=== PATIENT | female | born 1990 | race Caucasian/White ===

== ENCOUNTER 2018-04-26 14:34 | Emergency (ER) | payer BC ==
--- NOTE | 2018-04-26 15:35 | EDM.PDOC ---
ED HPI GENERAL MEDICAL PROBLEM - General Chief Complaint: General Stated Complaint: FEVER, COUGH ILL Time Seen by Provider: 04/26/18 15:16 Source of Information: Reports: Patient History Limitations: Reports: No Limitations - History of Present Illness INITIAL COMMENTS - FREE TEXT/NARRATIVE: Patient is a 27-year-old female who presents to the emergency department this afternoon with a complaint of upper respiratory symptoms that started yesterday. Patient states that she has fever, cough, nasal congestion and overall body aches. Patient denies shortness of breath, chest pain, headache, nausea, vomiting, diarrhea, or out of country travel. 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 - Related Data Allergies Allergy/AdvReac Type Severity Reaction Status Date / Time gluten Allergy Other Verified 04/26/18 14:41 Home Meds: Home Meds Escitalopram [Lexapro] 20 mg PO DAILY 04/26/18 [History] Minocycline [Minocin] 100 mg PO DAILY 04/26/18 [History] Oseltamivir [Tamiflu] 75 mg PO BID #6 cap 04/26/18 [Rx] Past Medical History Gastrointestinal History: Reports: Celiac Disease - Past Surgical History GI Surgical History: Reports: Other (See Below) Other GI Surgeries/Procedures: j-pouch reversal about 5 years ago Social & Family History - Family History Family Medical History: Noncontributory - Tobacco Use Smoking Status *Q: Never Smoker - Recreational Drug Use Recreational Drug Use: No ED ROS GENERAL - Review of Systems Review Of Systems: ROS reveals no pertinent complaints other than HPI. Constitutional: Reports: Fever, Chills HEENT: Reports: No Symptoms Respiratory: Reports: Cough Cardiovascular: Reports: No Symptoms Endocrine: Reports: No Symptoms GI/Abdominal: Reports: No Symptoms : Reports: No Symptoms Musculoskeletal: Reports: No Symptoms Skin: Reports: No Symptoms Neurological: Reports: No Symptoms Psychiatric: Reports: No Symptoms Hematologic/Lymphatic: Reports: No Symptoms Immunologic: Reports: No Symptoms ED EXAM, GENERAL - Physical Exam Exam: See Below Exam Limited By: No Limitations General Appearance: Alert, WD/WN, No Apparent Distress Eye Exam: Bilateral Eye: Normal Inspection Nose: Clear Rhinorrhea Throat/Mouth: Normal Inspection, Normal Oropharynx, No Airway Compromise Head: Atraumatic, Normocephalic Neck: Normal Inspection Respiratory/Chest: No Respiratory Distress, Lungs Clear, Normal Breath Sounds, No Accessory Muscle Use Cardiovascular: Regular Rate, Rhythm, No Murmur GI/Abdominal: Normal Bowel Sounds, Soft, Non-Tender Extremities: Normal Inspection, No Pedal Edema Neurological: Alert, Oriented, Normal Cognition Psychiatric: Normal Affect, Normal Mood Skin Exam: Warm, Dry, Intact, Normal Color, No Rash Lymphatic: No Adenopathy Course - Vital Signs Last Recorded V/S: Last Vital Signs Temp 98.4 F 04/26/18 14:52 Pulse 92 04/26/18 14:52 Resp 20 04/26/18 14:52 BP 108/69 04/26/18 14:52 Pulse Ox 98 04/26/18 14:52 - Re-Assessments/Exams Free Text/Narrative Re-Assessment/Exam: 04/26/18 16:03 Patient afebrile, vital signs stable, influenza A+. Patient given Tamiflu here and prescription to go. Departure - Departure Time of Disposition: 16:06 Disposition: Home, Self-Care 01 Condition: Good Clinical Impression: Influenza A - Discharge Information Instructions: Influenza, Adult, [id number], Viral Respiratory Infection, Easy -To-Read, Cough, Adult, [id number], Preventing Influenza, Adult Referrals: Bianka Ambrocio MD [Primary Care Provider] - Forms: ED Department Discharge Additional Instructions: Follow-up at [facility] in 2-3 days. Return to emergency sooner if symptoms continue or worsen.
[2018-04-26] MEDS ORDERED: Oseltamivir 75 MG Cap PO ONE ×2 (16:04→16:05)
== END 2018-04-26 16:30 | disposition home or self-care (01) ==
LOC: KA.ED 14:34
DX: J10.1 Influenza due to other identified influenza virus with other respiratory manifestations (principal); Z79.899 Other long term (current) drug therapy; Z91.018 Allergy to other foods
CPT/HCPCS: 87804; 99283; A9270-GY

== ENCOUNTER 2020-11-09 19:35 | Emergency (ER) | payer BC ==
[2020-11-09] MEDS ORDERED: Sodium Chloride 0.9% 10 ML Syringe FLUSH PRN (19:52)
--- NOTE | 2020-11-09 20:29 | EDM.PDOC ---
ED HPI GENERAL MEDICAL PROBLEM - General Stated Complaint: FEVER, POST DISCHARGE Time Seen by Provider: 11/09/20 20:18 Source of Information: Reports: Patient History Limitations: Reports: No Limitations - History of Present Illness INITIAL COMMENTS - FREE TEXT/NARRATIVE: Patient presents with fever that started today along with foul-smelling vaginal discharge for 2-3 days. She is one week s/p vaginal delivery of her first baby. There was some vaginal tearing and she has stitches. She hasn't looked to see if there is increasing redness. Pain is not increasing but not really improving either. Temp at home was 100.5. She is breast-feeding. Baby is doing well. She called her OB doctor and was instructed to come to ER. - Related Data Allergies Allergy/AdvReac Type Severity Reaction Status Date / Time gluten Allergy Other Verified 11/09/20 20:20 Home Meds: Home Meds Escitalopram [Lexapro] 20 mg PO DAILY 04/26/18 [History] Minocycline [Minocin] 100 mg PO DAILY 04/26/18 [History] Oseltamivir [Tamiflu] 75 mg PO BID #6 cap 04/26/18 [Rx] Past Medical History Gastrointestinal History: Reports: Celiac Disease - Past Surgical History GI Surgical History: Reports: Other (See Below) Other GI Surgeries/Procedures: j-pouch reversal about 5 years ago Social & Family History - Family History Family Medical History: No Pertinent Family History ED ROS GENERAL - Review of Systems Review Of Systems: See Below Constitutional: Reports: Fever. Denies: Chills, Malaise, Weakness, Diaphoresis, Decreased Appetite HEENT: Reports: No Symptoms Respiratory: Denies: Shortness of Breath, Cough Cardiovascular: Denies: Chest Pain, Lightheadedness, Syncope GI/Abdominal: Denies: Abdominal Pain, Vomiting : Denies: Dysuria Musculoskeletal: Reports: No Symptoms Skin: Denies: Cyanosis, Jaundice, Mottled, Pallor, Diaphoresis Neurological: Denies: Confusion, Dizziness, Headache, Seizure, Syncope, Trouble Speaking, Difficulty Walking Psychiatric: Denies: Agitation, Anxiety, Confusion ED EXAM, RENAL/ - Physical Exam Exam: See Below Exam Limited By: No Limitations General Appearance: Alert, WD/WN, No Apparent Distress Eye Exam: Bilateral Eye: EOMI, Normal Inspection, PERRL Ears: Normal External Exam, Hearing Grossly Normal Nose: Normal Inspection, No Blood Throat/Mouth: Normal Inspection, Normal Lips, Normal Voice, No Airway Compromise Head: Atraumatic, Normocephalic Neck: Normal Inspection, Full Range of Motion Respiratory/Chest: No Respiratory Distress, Lungs Clear, Normal Breath Sounds, No Accessory Muscle Use Cardiovascular: Regular Rate, Rhythm, No Murmur GI/Abdominal: Normal Bowel Sounds, Soft, No Organomegaly, No Distention, Tender (mildly, non-focal) (Female) Exam: Vaginal Discharge (small amount of pus which was collected for culture), Vaginal Tears (suture noted on left internal labia). No: Vaginal Bleeding Back Exam: CVA Tenderness (R). No: CVA Tenderness (L) Extremities: Normal Inspection, Normal Range of Motion Neurological: Alert, Oriented, Normal Cognition, No Motor/Sensory Deficits Psychiatric: Normal Affect, Normal Mood Skin Exam: Warm, Dry, Intact, No Rash, Erythema (of right inferomedial and lat eral right breast consistent with mastitis.) Course - Vital Signs Last Recorded V/S: Last Vital Signs Temp 100.6 F 11/09/20 19:50 Pulse 94 11/09/20 19:50 Resp 20 11/09/20 19:50 BP 135/84 11/09/20 19:50 Pulse Ox 97 11/09/20 19:50 - Orders/Labs/Meds Orders: Active Orders 24 hr Category Date Time Status Peripheral IV Care [RC] . DIRECTED Care 11/09/20 19:52 Active CULTURE BODY FLUID [RM] Stat Lab 11/09/20 20:54 Ordered CULTURE URINE [RM] Stat Lab 11/09/20 21:12 Ordered Sodium Chloride 0.9% [Saline Flush] Med 11/09/20 19:52 Active 10 ml FLUSH Q8HR PRN Peripheral IV Insertion Adult [OM.PC] Routine Oth 11/09/20 19:52 Ordered Medication Orders Sodium Chloride (Sodium Chloride 0.9% 10 Ml Syringe) 10 ml FLUSH Q8HR PRN PRN Reason: keep vein open Labs: Laboratory Tests 11/09/20 11/09/20 11/09/20 Range/Units 19:50 20:00 20:00 WBC 15.21 H (5.00-10.00) 10^3/uL RBC 4.56 (3.80-5.50) 10^6/uL Hgb 14.4 (12.0-16.0) g/dL Hct 42.4 (37.0-47.0) % MCV 93.0 H (82.0-92.0) fL MCH 31.6 H (27.0-31.0) pg MCHC 34.0 (32.0-36.0) g/dL RDW 14.4 (11.5-14.5) % Plt Count 411 H (150-400) 10^3/uL MPV 9.8 (7.4-10.4) fL Immature Gran % (Auto) 0.3 (0.0-5.0) % Neut % (Auto) 84.9 H (50.0-70.0) % Lymph % (Auto) 9.0 L (20.0-40.0) % [place] % (Auto) 4.9 (2.0-8.0) % Eos % (Auto) 0.8 L (1.0-3.0) % Baso % (Auto) 0.1 (0.0-1.0) % Neut # (Auto) 12.91 H (2.50-7.00) 10^3/uL Lymph # (Auto) 1.37 (1.00-4.00) 10^3/uL [place] # (Auto) 0.75 (0.10-0.80) 10^3/uL Eos # (Auto) 0.12 (0.10-0.30) 10^3/uL Baso # (Auto) 0.02 (0.00-0.10) 10^3/uL Immature Gran # (Auto) 0.04 (0.00-0.50) 10^3/uL Sodium 139 (136-145) mmol/L Potassium 3.4 L (3.5-5.1) mmol/L Chloride 102 (98-107) mmol/L Carbon Dioxide 28.3 (21.0-32.0) mmol/L Anion Gap 12.1 (5-15) mmol/L BUN 12 (7-18) mg/dL Creatinine 0.74 (0.51-1.17) mg/dL Est Cr Clr Drug Dosing 89.52 mL/min Estimated GFR (MDRD) > 60 mL/min Glucose 105 (70-140) mg/dL Lactic Acid (0.4-2.0) mmol/L Calcium 8.8 (8.7-10.3) mg/dL C-Reactive Protein 5.6 H (0.0-0.9) mg/dL Specimen Type Urinvoid Urine Color Yellow (YELLOW) Urine Appearance Slightly cloudy H (CLEAR) Urine pH 5.5 (5.0-9.0) Ur Specific [place] 1.025 (1.005-1.030) Urine Protein Negative (NEGATIVE) mg/dL Urine Glucose (UA) Negative (NEGATIVE) mg/dL Urine Ketones Negative (NEGATIVE) mg/dL Urine Occult Blood Moderate H (NEGATIVE) Urine Nitrite Negative (NEGATIVE) Urine Bilirubin Negative (NEGATIVE) Urine Urobilinogen 0.2 (0.2-1.0) E.U./dL Ur Leukocyte Esterase Small H (NEGATIVE) Urine RBC 0-5 (0-5) /HPF Urine WBC Semi-packed (0-5) /HPF Ur Epithelial Cells Few /LPF Urine Bacteria Few (NONE TO FEW) /HPF 11/09/20 Range/Units 20:00 WBC (5.00-10.00) 10^3/uL RBC (3.80-5.50) 10^6/uL Hgb (12.0-16.0) g/dL Hct (37.0-47.0) % MCV (82.0-92.0) fL MCH (27.0-31.0) pg MCHC (32.0-36.0) g/dL RDW (11.5-14.5) % Plt Count (150-400) 10^3/uL MPV (7.4-10.4) fL Immature Gran % (Auto) (0.0-5.0) % Neut % (Auto) (50.0-70.0) % Lymph % (Auto) (20.0-40.0) % [place] % (Auto) (2.0-8.0) % Eos % (Auto) (1.0-3.0) % Baso % (Auto) (0.0-1.0) % Neut # (Auto) (2.50-7.00) 10^3/uL Lymph # (Auto) (1.00-4.00) 10^3/uL [place] # (Auto) (0.10-0.80) 10^3/uL Eos # (Auto) (0.10-0.30) 10^3/uL Baso # (Auto) (0.00-0.10) 10^3/uL Immature Gran # (Auto) (0.00-0.50) 10^3/uL Sodium (136-145) mmol/L Potassium (3.5-5.1) mmol/L Chloride (98-107) mmol/L Carbon Dioxide (21.0-32.0) mmol/L Anion Gap (5-15) mmol/L BUN (7-18) mg/dL Creatinine (0.51-1.17) mg/dL Est Cr Clr Drug Dosing mL/min Estimated GFR (MDRD) mL/min Glucose (70-140) mg/dL Lactic Acid 0.8 (0.4-2.0) mmol/L Calcium (8.7-10.3) mg/dL C-Reactive Protein (0.0-0.9) mg/dL Specimen Type Urine Color (YELLOW) Urine Appearance (CLEAR) Urine pH (5.0-9.0) Ur Specific [place] (1.005-1.030) Urine Protein (NEGATIVE) mg/dL Urine Glucose (UA) (NEGATIVE) mg/dL Urine Ketones (NEGATIVE) mg/dL Urine Occult Blood (NEGATIVE) Urine Nitrite (NEGATIVE) Urine Bilirubin (NEGATIVE) Urine Urobilinogen (0.2-1.0) E.U./dL Ur Leukocyte Esterase (NEGATIVE) Urine RBC (0-5) /HPF Urine WBC (0-5) /HPF Ur Epithelial Cells /LPF Urine Bacteria (NONE TO FEW) /HPF Meds: Medications Generic Name Dose Route Start Last Admin Trade Name Freq PRN Reason Stop Dose Admin Sodium Chloride 10 ml 11/09/20 19:52 Sodium Chloride 0.9% 10 Ml Syringe FLUSH Q8HR PRN keep vein open Discontinued Medications Generic Name Dose Route Start Last Admin Trade Name Freq PRN Reason Stop Dose Admin Ceftriaxone Sodium 1 gm 11/09/20 21:02 Ceftriaxone 1 Gm Vial IVPUSH 11/09/20 21:03 ONETIME ONE - Re-Assessments/Exams Free Text/Narrative Re-Assessment/Exam: 11/09/20 21:03 WBC, ANC, CRP elevated. UA shows lots of WBCs. Will culture urine. Collected vaginal specimen for culture also. Discussed antibiotic coverage with telepharmacy and will do Rocephin/cefdinir for 10 days to cover soft tissue infection, UTI, and mastitis; with good safety profile for breast-feeding. Discussed findings and treatment plan with patient. Giving a dose of Rocephin 1 gm IV now and she will start Rx Cefdinir 300 mg bid x 10 days tomorrow. Discharged to home in stable condition. Departure - Departure Time of Disposition: 21:11 Disposition: Home, Self-Care 01 Condition: Good Clinical Impression: Mastitis associated with childbirth, delivered, pelvic cellulitis UTI (urinary tract infection) Qualifiers: Urinary tract infection type: acute cystitis Hematuria presence: with hematuria Qualified Code(s): N30.01 - Acute cystitis with hematuria - Discharge Information Instructions: Mastitis, [id number], and Mastitis, Urinary Tract Infection, Adult, [id number] Referrals: Bianka Ambrocio MD [Primary Care Provider] - Additional Instructions: Drink 8 cups of water daily. Take the antibiotic as directed. Call your OB doctor tomorrow to discuss ER findings and treatment. Follow up with your OB as they advise but definitely if any worsening or failing to resolve with treatment. Return to ER as needed. Sepsis Event Note (ED) - Focused Exam Vital Signs: Vital Signs Temp Pulse Resp BP Pulse Ox 11/09/20 19:50 100.6 F 94 20 135/84 97 - My Orders Last 24 Hours: My Active Orders 11/09/20 19:52 Peripheral IV Care [RC] . DIRECTED Sodium Chloride 0.9% [Saline Flush] 10 ml FLUSH Q8HR PRN Peripheral IV Insertion Adult [OM.PC] Routine 11/09/20 20:54 CULTURE BODY FLUID [RM] Stat 11/09/20 21:12 CULTURE URINE [RM] Stat - Assessment/Plan Last 24 Hours: My Active Orders 11/09/20 19:52 Peripheral IV Care [RC] . DIRECTED Sodium Chloride 0.9% [Saline Flush] 10 ml FLUSH Q8HR PRN Peripheral IV Insertion Adult [OM.PC] Routine 11/09/20 20:54 CULTURE BODY FLUID [RM] Stat 11/09/20 21:12 CULTURE URINE [RM] Stat
[2020-11-09 20:36] LABS: ANION GAP 12.1 mmol/L (5-15); CHLORIDE,CL 102 mmol/L (98-107); SODIUM,NA 139 mmol/L (136-145)
[2020-11-09] MEDS: cefTRIAXone 1 GM Vial IVPUSH ONE (21:08)
== END 2020-11-09 21:25 | disposition home or self-care (01) ==
LOC: KA.ED 19:35
DX: O85 Puerperal sepsis (principal); O91.22 Nonpurulent mastitis associated with the puerperium; Z91.018 Allergy to other foods
CPT/HCPCS: 36415; 80048; 81001; 83605; 85025; 86140; 87070; 87075; 87086; 87186; 87205; 96374; 99283; 99283-25; J0696

== ENCOUNTER 2021-07-10 10:38 | Emergency (ER) | payer BC ==
[2021-07-10] MEDS: Sodium Chloride 0.9% 1,000 ML IV ONE ×2 (11:00→12:08)
[2021-07-10] MEDS: Ondansetron 4 MG/2 ML SDV IVPUSH ONE (11:18)
[2021-07-10 11:49] LABS: CORONAVIRUS COVID-19 NAA NEGATIVE (NEGATIVE)
[2021-07-10 11:52] LABS: ANION GAP 19.3 mmol/L (5-15)
== END 2021-07-10 13:32 | disposition home or self-care (01) ==
LOC: KA.ED 10:38
DX: N17.9 Acute kidney failure, unspecified (principal); E86.0 Dehydration; E87.8 Other disorders of electrolyte and fluid balance, not elsewhere classified; Z91.018 Allergy to other foods; Z20.822 Contact with and (suspected) exposure to COVID-19
CPT/HCPCS: 0240U; 36415; 80053; 81001; 84702; 85025; 96374; 99284; 99284-25; J2405; J7030